=== PATIENT | female | born 1945 | race Caucasian/White ===

== ENCOUNTER 2018-11-01 10:54 | Day surgery (SDC) | payer MEDICARE, OTHER ==
[2018-11-01] MEDS ORDERED: LIDOCAINE 2% MDV (20MG/ML) 20ML VIAL IV ONE (10:55)
[2018-11-01] MEDS ORDERED: PROPOFOL 10 MG/ML VIAL IV ONE (10:55)
[2018-11-01] MEDS ORDERED: FENTANYL PF 100MCG/2ML VIAL IV ONE (10:55)
--- NOTE | 2018-11-02 12:11 | Operative Note ---
DATE OF SURGERY: 11/01/2018 OPERATION: ESOPHAGOGASTRODUODENOSCOPY with photo. PREOPERATIVE DIAGNOSIS: Questionable dysphagia. POSTOPERATIVE DIAGNOSIS: Normal exam. PROCEDURE: After informed consent was obtained from the patient, the patient was placed in the left lateral decubitus position in the endoscopy suite, sedated and monitored by the department of anesthesia. A well-lubricated FBW260 gastroscope was placed in the posterior oropharynx under direct visualization and passed to the proximal esophagus. The endoscope was advanced through the proximal, mid, and distal esophagus. The esophagus in its length was unremarkable. There was some adherent white material in the distal esophagus. This was aspirated with the endoscope. The remainder of the esophagus appeared normal. There was no persistent white adherent material. The gastric body, antrum, pylorus, duodenal bulb, and sweep were unremarkable. J-turn views of the proximal stomach were unrevealing. The endoscope was then straightened and retracted from the patient with no new findings noted. RECOMMENDATIONS: I would suggest the patient undergo a chest x-ray if this has not been recently performed. She may benefit from a CT scan depending on the findings and her symptoms. At this point, there is no obvious intraluminal esophageal irregularity to account for her complaints. As always, thank you for allowing me to participate in the healthcare of your patients. CC: CHASTITY Negrete
--- NOTE | 2018-11-04 17:00 | RADIOLOGY REPORT ---
DATE: 11/01/2018 at 1156. EXAM: CHEST, TWO VIEWS. HISTORY: PRESSURE ON ESOPHAGUS DURING EGD TODAY. TECHNIQUE: Upright PA and lateral views of the chest. COMPARISON: None. FINDINGS: The heart is mildly enlarged with a left ventricular configuration. No pulmonary venous hypertension is seen. The thoracic aorta is tortuous and atherosclerotic. The lungs appear mildly hyperinflated consistent with chronic obstructive pulmonary disease. Minimal bi-apical pleural and parenchymal scarring is present. An intraspinal stimulator lead is noted within the mid to lower spinal canal. There are degenerative changes scattered throughout the visualized spine. Mild anterior wedging of multiple mid to lower thoracic vertebral bodies appearing chronic. There is associated accentuation of the normal thoracic kyphosis. IMPRESSION: 1. MILD CARDIOMEGALY WITH LEFT VENTRICULAR CONFIGURATION. NO PULMONARY VENOUS HYPERTENSION. 2. TORTUOUS ATHEROSCLEROTIC THORACIC AORTA. 3. NO EVIDENCE OF AN ACUTE PULMONARY PROCESS. 4. NOT MENTIONED ABOVE IS MINIMAL LINEAR SCARRING VERSUS ATELECTASIS IN THE LATERAL RIGHT LUNG BASE. 5. INTRASPINAL STIMULATOR IN PLACE. 6. MULTILEVEL DEGENERATIVE CHANGES OF THE THORACIC SPINE. MINOR, CHRONIC- APPEARING WEDGING OF MULTIPLE THORACIC VERTEBRAL BODIES. THESE FINDINGS ARE ASSOCIATED WITH ACCENTUATION OF THE NORMAL THORACIC KYPHOSIS. Job Number: [id number] [facility]
== END 2018-11-01 11:50 | disposition home or self-care (01) ==
LOC: HOP 10:54
PROVIDERS: ATTEND Internal Medicine Gastroenterology
DX: R11.14 Bilious vomiting (principal); J18.9 Pneumonia, unspecified organism
CPT/HCPCS: 43235; 00731; 71046; J3010